=== PATIENT | female | born 1980 | race Caucasian/White ===

== ENCOUNTER 2020-11-12 15:42 | Day surgery (SDC) | payer OTHER ==
[2020-11-12] MEDS ORDERED: Depo-Medrol 40 MG/ML IM ONE (15:43)
[2020-11-12] MEDS ORDERED: BUPIVACAINE 0.5% VIAL IJ ONE (15:43)
[2020-11-12] MEDS ORDERED: Xylocaine 1% Vial 30 ML PF IJ ONE (15:43)
--- NOTE | 2020-11-12 17:35 | XRAY ---
Indication: Left SI joint injection. Intraoperative fluoroscopy provided for 26 seconds. Single lateral digital spot image submitted for interpretation demonstrates needle tip projecting mid sacrum. Correlate with intraoperative findings/report.
--- NOTE | 2020-11-13 09:09 | XRAY ---
26 seconds fluoroscopy time in surgery for injection of the left SI joint.
== END 2020-11-12 16:55 | disposition home or self-care (01) ==
LOC: SDC-PAIN 15:42
PROVIDERS: ATTEND Psychiatry & Neurology Pain Medicine
DX: M46.1 Sacroiliitis, not elsewhere classified (principal); E06.3 Autoimmune thyroiditis; Z79.899 Other long term (current) drug therapy
CPT/HCPCS: 27096; 72020; 77002; 84703; G0260; J1030; J2001

== ENCOUNTER 2020-12-02 06:26 | Day surgery (SDC) | payer OTHER ==
[2020-12-02] MEDS ORDERED: Lactated Ringers 1,000 ML IV SCH (06:30)
[2020-12-02] MEDS ORDERED: CEFAZOLIN 2 GM-D5W BAG** 2 GM/50 ML ML IV SCH (06:30)
[2020-12-02] MEDS ORDERED: DIPRIVAN 200 MG/20 ML IV ONE (08:42)
[2020-12-02] MEDS ORDERED: Versed 2 MG/2 ML Injection ONE (08:42)
[2020-12-02] MEDS ORDERED: SUBLIMAZE 100 MCG/2 ML ONE (09:57)
[2020-12-02 10:43] VITALS: O2SAT 100
[2020-12-02 11:13] VITALS: BP 118/72; PULSE 60
--- NOTE | 2020-12-03 07:54 | OP ---
SURGERY DATE/TIME: 12/02/2020 0901 PREOPERATIVE DIAGNOSIS: Abnormal uterine bleeding. POSTOPERATIVE DIAGNOSIS: Abnormal uterine bleeding. PROCEDURE: Hysteroscopy, D&C with NovaSure ablation. SURGEON: Parveen Sharp D.O. SEROLOGY TECHNICIAN: Parish Elder surgical aides teacher. ANESTHESIA: General. ESTIMATED BLOOD LOSS: Minimal. COMPLICATIONS: None. INDICATIONS: The risks, benefits, indications and alternatives of the procedure were reviewed with the patient prior to the procedure. The patient understood the risk of infection, bleeding, bowel injury, bladder injury, ureteral injury, uterine perforation, pelvic infection, thromboembolic disorder associated with the surgery and desires to have this surgery as a possible means to alleviate her current medical condition. DESCRIPTION OF PROCEDURE AND FINDINGS: At this point the patient is taken to the operating room, given general sedation, placed in the dorsal lithotomy position, prepped and draped in the usual sterile fashion. A weighted speculum is then placed in the patient's vagina and the anterior lip of the cervix is grasped with a single tooth tenaculum. Endocervical dilators were advanced through the endocervical canal as a means to dilate the cervix and at this point sound was placed through the endocervical canal where it was sounded to approximately 9 cm. From this point a 5 mm hysteroscope was then placed in through the endocervical canal where visualization of the endometrial lining appeared to be within normal limits with no gross abnormalities. From this point the hysteroscope was then removed and the curette was then placed into the fundus of the uterus and curettage is performed in all quadrants of the uterus retrieving a mild amount of endometrial tissue. From this point hemostasis was obtained. From this point the NovaSure instrument was then placed into the fundus of the uterus retracting approximately 1 cm was engaged and had a length of 6 cm with a width of 2.9 cm where the machine was turned on for an ablative time of 45 seconds. At the completion of the ablation the instrument was disengaged and removed from the uterine cavity. From this point all instruments were removed from the patient's vaginal region. The patient was then taken out of the dorsal lithotomy position, was taken out of anesthesia and was then taken to the recovery room in stable condition. All instruments and laps were accounted for x2.
== END 2020-12-02 11:15 | disposition home or self-care (01) ==
LOC: SDC 06:26
PROVIDERS: ATTEND Obstetrics & Gynecology
DX: N93.9 Abnormal uterine and vaginal bleeding, unspecified (principal)
CPT/HCPCS: 84703; J0690; J2250; J2704; J3010

== ENCOUNTER 2020-12-24 14:48 | Day surgery (SDC) | payer OTHER ==
[2020-12-24] MEDS ORDERED: BUPIVACAINE 0.5% VIAL IJ ONE (14:49)
[2020-12-24] MEDS ORDERED: Xylocaine 1% Vial 30 ML PF IJ ONE (14:49)
[2020-12-24] MEDS ORDERED: Depo-Medrol 40 MG/ML IM ONE (14:49)
[2020-12-24] MEDS ORDERED: Lactated Ringers 1,000 ML IV ONE (15:37)
[2020-12-24] MEDS ORDERED: DIPRIVAN 200 MG/20 ML IV ONE (16:12)
[2020-12-24] MEDS ORDERED: BENADRYL 50 MG/ML ONE (16:32)
--- NOTE | 2020-12-24 17:03 | XRAY ---
24 seconds fluoroscopy time in surgery for left SI joint RFA.
--- NOTE | 2020-12-26 09:18 | XRAY ---
Indication: Left sacroiliac joint RFA. Intraoperative fluoroscopy was provided for 24 seconds. 3 digital spot images submitted for interpretation demonstrate 4 posterior needle tips projected just medial to the left SI joint. Correlate with intraoperative findings/report.
== END 2020-12-24 16:40 | disposition home or self-care (01) ==
LOC: SDC-PAIN 14:48
PROVIDERS: ATTEND Psychiatry & Neurology Pain Medicine
DX: M46.1 Sacroiliitis, not elsewhere classified (principal); Z79.899 Other long term (current) drug therapy
CPT/HCPCS: 64625; 72202; 77002; 84703; J1030; J1200; J2001; J2704

== ENCOUNTER 2023-01-19 10:31 | Day surgery (SDC) | payer OTHER ==
[2023-01-19] MEDS ORDERED: LIDOCAINE HCL 2% 100 MG/5 ML IJ ONE (10:32)
[2023-01-19 11:20] LABS: HCG URINE TEST NEGATIVE (NEGATIVE)
[2023-01-19] MEDS ORDERED: DIPRIVAN 200 MG/20 ML IV ONE (12:00)
[2023-01-19] MEDS ORDERED: Lactated Ringers 1,000 ML IV ONE (12:55)
--- NOTE | 2023-01-19 13:44 | XRAY ---
Indication: Left C2-C4 MBB. Intraoperative fluoroscopy provided for 13 seconds. 2 digital spot image submitted for interpretation demonstrates posterior needle tips projecting over the expected left C2-C4 nerve roots. Correlate with intraoperative findings/report.
--- NOTE | 2023-01-19 13:58 | XRAY ---
13 seconds of fluoroscopy was used in surgery for a left C2-C4 MBB.
== END 2023-01-19 12:30 | disposition home or self-care (01) ==
LOC: SDC-PAIN 10:31
PROVIDERS: ATTEND Psychiatry & Neurology Pain Medicine
DX: M47.812 Spondylosis without myelopathy or radiculopathy, cervical region (principal); Z79.899 Other long term (current) drug therapy
CPT/HCPCS: 64490; 64491; 72040; 77002; 81025; J2704

== ENCOUNTER 2023-07-28 00:04 | Emergency (ER) | payer OTHER ==
[2023-07-28 00:19] VITALS: BP 122/72; PULSE 74; RESP 14; TEMP 98.1; O2SAT 97
--- NOTE | 2023-07-28 00:26 | ERPHSYRPT ---
- History of Present Illness Time Seen by Provider: 07/28/23 00:20 Source: patient Exam Limitations: no limitations Patient Subjective Stated Complaint: pt was administering medicationa nd immed after heparin as injected in pt, pt was stuck in her index finger on the lt schaffer nd. Triage Nursing Assessment: pt alert and oriented, answers questions approp. pt ambulates into er with steady gait noted. respirations nonlabored. skin warm and dry. small puncture noted to lt index finger. no bleeding at this time. 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 Patient states she was administering heparin to a patient and immediately thereafter stuck her left index finger, nondominant hand with a hollow bore needle. Injury occurred just prior to arrival. Patient removed her gloves and observe blood at her fingertip. No other injuries reported. The involved digit is not neurovascular tact distally compartments are soft cap refill less than 2 seconds. No other injuries reported. Tetanus is not up-to-date. Patient currently feels well. No residual pain over involved finger. Patient otherwise voices no other complaints or concerns at this time. Portions of this note were created with voice recognition technology. There may be grammatical, spelling, punctuation or sound alike errors Timing/Duration: today Severity: mild Modifying Factors: Improves With: nothing Associated Symptoms: denies symptoms Allergies/Adverse Reactions: epinephrine Adverse Reaction (Severe, Verified 07/28/23 00:20) Irregular Heart Beat Home Medications: Acetaminophen [Tylenol Extra Strength] 1 - 2 tab PO DAILY PRN PRN 11/26/20 [History] Ergocalciferol (Vitamin D2) [Vitamin D] 50,000 unit PO DAILY 11/26/20 [History] Ibuprofen 1 - 2 tab PO Q4H PRN PRN 11/26/20 [History] Levothyroxine Sodium [Tirosint] 75 mcg PO DAILY 11/26/20 [History] Naproxen Sodium [Aleve] 440 mg PO DAILY PRN 11/26/20 [History] Cephalexin Mh 500 mg [Keflex 500 mg] 500 mg PO BID 12/02/20 [History] Loratadine 10 mg [Claritin 10 mg] 10 mg PO DAILY 12/02/20 [History] Melatonin 5 mg PO DAILY PRN MDD 3 12/02/20 [History] Hx Tetanus, Diphtheria Vaccination/Date Given: No Hx Influenza Vaccination/Date Given: No Hx Pneumococcal Vaccination/Date Given: No Immunizations Up to Date: No Travel Risk - International Travel Have you traveled outside of the country in past 3 weeks: No - Emerging Infectious Disease Are you exhibiting symptoms associated with any current EIDs: No - Review of Systems Constitutional: No Symptoms, No Fever, No Chills Eyes: No Symptoms Ears, Nose, & Throat: No Symptoms Respiratory: No Symptoms, No Cough, No Dyspnea Cardiac: No Symptoms, No Chest Pain, No Edema, No Syncope Abdominal/Gastrointestinal: No Symptoms, No Abdominal Pain, No Nausea, No Vomiting, No Diarrhea Genitourinary Symptoms: No Symptoms, No Dysuria Musculoskeletal: No Symptoms, No Back Pain, No Neck Pain Skin: No Symptoms, No Rash Neurological: No Symptoms, No Dizziness, No Focal Weakness, No Sensory Changes Psychological: No Symptoms Endocrine: No Symptoms Hematologic/Lymphatic: No Symptoms Immunological/Allergic: No Symptoms All Other Systems: Reviewed and Negative - Past Medical History Pertinent Past Medical History: Yes Neurological History: Other ENT History: No Pertinent History Cardiac History: Other Respiratory History: No Pertinent History Endocrine Medical History: Hypothyroidism Musculoskeletal History: Other GI Medical History: No Pertinent History History: Other Psycho-Social History: Anxiety Female Reproductive Disorders: No Pertinent History Other Medical History: SOME HEADACHES WITH NECK PAIN. MITRAL VALVE PROLAPSE. - Past Surgical History Past Surgical History: Yes Neuro Surgical History: No Pertinent History Cardiac: No Pertinent History Respiratory: No Pertinent History Gastrointestinal: No Pertinent History Genitourinary: No Pertinent History Musculoskeletal: No Pertinent History Female Surgical History: Tubal Ligation Other Surgical History: leep 2006, uterine ablation - Female History Hx Last Menstrual Period: ablation Hx Now: No - Social History Smoking Status: Former smoker Exposure to second hand smoke: No Drug Use: none - Nursing Vital Signs Nursing Vital Signs: Initial Vital Signs Temperature 98.1 F 07/28/23 00:05 Pulse Rate 74 07/28/23 00:05 Respiratory Rate 14 07/28/23 00:05 Blood Pressure 122/72 07/28/23 00:05 O2 Sat by Pulse Oximetry 97 07/28/23 00:05 Pain Scale Pain Intensity 0 - Physical Exam General Appearance: no apparent distress, alert Eye Exam: PERRL/EOMI, eyes nml inspection Ears, Nose, Throat Exam: pharynx normal, moist mucous membranes Neck Exam: normal inspection, full range of motion Respiratory Exam: normal breath sounds, lungs clear, airway intact, No respiratory distress Cardiovascular Exam: regular rate/rhythm, normal heart sounds, normal peripheral pulses Gastrointestinal/Abdomen Exam: soft, normal bowel sounds, No tenderness, No mass Back Exam: normal inspection, normal range of motion, No CVA tenderness, No vertebral tenderness Extremity Exam: normal inspection, normal range of motion, pelvis stable Neurologic Exam: alert, oriented x 3, cooperative, normal mood/affect, nml cerebellar function, nml station & gait, sensation nml, No motor deficits Skin Exam: normal color, warm, dry, No rash Lymphatic Exam: No adenopathy SpO2 Interpretation: normal SpO2: 97 O2 Delivery: Room Air - Course Nursing assessment & vital signs reviewed: Yes Ordered Tests: Active Orders 24 hr Category Date Time Status Wound Care STAT Care 07/28/23 00:29 Completed Medication Summary Discontinued Medications Generic Name Dose Route Start Last Admin Trade Name Davi PRN Reason Stop Dose Admin Diphtheria/Tetanus/Acell Pertussis 0.5 ml 07/28/23 00:26 07/28/23 00:37 Tdap --Diph,Pertuss(Acell),Tet Vac/Pf 0.5 Ml Vial IM 07/28/23 00:27 0.5 ml .ONCE ONE Administration Diphtheria/Tetanus/Acell Pertussis Confirm 07/28/23 00:33 Tdap --Diph,Pertuss(Acell),Tet Vac/Pf 0.5 Ml Vial Administered 07/28/23 00:34 Dose 0.5 ml IM .[facility] - Progress Progress: improved Progress Note: Patient is a 42-year-old female presents to the emergency department for evaluation post needlestick. Physical exam nonremarkable. Associated paperwork completed. Tetanus updated. Patient otherwise declined HIV prophylaxis. Patient will follow-up with with occupational health. Patient returned back to work. Patient voiced no other complaints or concerns. Portions of this note were created with voice recognition technology. There may be grammatical, spelling, punctuation or sound alike errors Complexity problem addressed is moderate acute complicated No critical care time Complexity of data reviewed is none. No specialized test ordered. Diagnosis made based on history and physical exam. Risk of complication and or risk of morbidity/mortality of patient management is low Vital stable. Time spent to discharge patient is approximately 10 minutes. Plan of care established for shared decision making. No social determinants of health present impede follow-up. Portions of this note were created with voice recognition technology. There may be grammatical, spelling, punctuation or sound alike error 07/28/23 06:04 Counseled pt/family regarding: diagnosis, need for follow-up (Patient will be following up with the infection control nurse) - Departure Departure Disposition: Home Clinical Impression: Needlestick injury accident Condition: Stable Critical Care Time: No Referrals: Provider,Unknown [NON-STAFF PHY W/O PRIVILEGES] - Follow up/PCP as directed Additional Instructions: Discharge/Care Plan DOMINGUEZ VAZQUEZ was seen on 07/28/23 in the Emergency Room. The patient was counseled regarding Diagnosis,Lab results, Imaging studies, need for follow up and when to return to the Emergency Room. Prescriptions given: Discharge Note I have spoken with the patient and/or caregivers. I have explained the patient's condition, diagnosis and treatment plan based on the information available to me at this time. I have answered the patient's and/or caregiver's questions and addressed any concerns. The patient and/or caregivers have as good understanding of the patient's diagnosis, condition and treatment plan as can be expected at this point. The vital signs have been stable. The patient's condition is stable and appropriate for discharge from the emergency department. The patient will pursue further outpatient evaluation with the primary care physician or other designated or consulting physician as outlined in the discharge instructions. The patient and/or caregivers are agreeable to this plan of care and follow-up instructions have been explained in detail. The patient and/or caregivers have received these instruction. The patient/and or caregivers are aware that any significant change in condition or worsening of symptoms should prompt an immediate return to this or the closest emergency department or call 911.
[2023-07-28] MEDS ORDERED: Adacel Vial IM ONE (00:33)
[2023-07-28] MEDS: Adacel Vial IM ONE (00:37)
[2023-07-29 09:36] LABS: HIV Screen 4th Generation wRfx Non Reactive (Non Reactive)
[2023-07-29 09:37] LABS: HBsAg Screen Negative (Negative); Hep B Surface Ab, Quant >1000.0 mIU/mL (Immunity>9.9); Hep C Virus Ab Non Reactive (Non Reactive)
== END 2023-07-28 00:55 | disposition home or self-care (01) ==
LOC: ER - EH 00:04
DX: S61.231A Puncture wound without foreign body of left index finger without damage to nail, initial encounter (principal); W46.1XXA Contact with contaminated hypodermic needle, initial encounter; Y92.239 Unspecified place in hospital as the place of occurrence of the external cause; Y99.0 Civilian activity done for income or pay; Z79.899 Other long term (current) drug therapy; Z23 Encounter for immunization
CPT/HCPCS: 36415; 86317; 87340; 87389; 90471; 99283; G0472; 86803; 90715

== ENCOUNTER 2025-04-18 09:30 | Day surgery (SDC) ==
[2025-04-18] MEDS ORDERED: LIDOCAINE HCL 1% 50 MG/5 ML VL IJ ONE (09:31)
[2025-04-18 10:12] LABS: HCG URINE TEST NEGATIVE (NEGATIVE)
[2025-04-18] MEDS ORDERED: propofoL IV ONE (11:48)
[2025-04-18] MEDS ORDERED: Lactated Ringers 1,000 ML IV ONE (12:46)
--- NOTE | 2025-04-18 13:52 | XRAY ---
Indication: Right C2-C4 MBB. Intraoperative fluoroscopy provided for 12 seconds. 2 digital spot image submitted for interpretation demonstrates posterior needle tips projecting over expected right C2-C4 nerve roots. Correlate with intraoperative findings/report.
--- NOTE | 2025-04-18 13:54 | XRAY ---
12 seconds of fluoroscopy was used in surgery for a right C2-C4 MBB.
== END 2025-04-18 12:19 | disposition home or self-care (01) ==
LOC: SDC-PAIN 09:30
PROVIDERS: ATTEND Psychiatry & Neurology Pain Medicine
DX: M47.812 Spondylosis without myelopathy or radiculopathy, cervical region (principal)